=== PATIENT | male | born 1960 | race Caucasian/White ===

== ENCOUNTER 2021-06-24 10:08 | Emergency (ER) | payer OTHER ==
[2021-06-24] MEDS ORDERED: NAPROXEN500 MG PO (11:07)
== END 2021-06-24 11:30 | disposition home or self-care (01) ==
LOC: FER 10:08
DX: S40.012A Contusion of left shoulder, initial encounter (principal); W01.0XXA Fall on same level from slipping, tripping and stumbling without subsequent striking against object, initial encounter; Y92.89 Other specified places as the place of occurrence of the external cause; Y99.0 Civilian activity done for income or pay
CPT/HCPCS: 73030; J1885